=== PATIENT | female | born 1955 | race Caucasian/White ===

== ENCOUNTER → 2020-09-22 | Outpatient (CLI) | payer OTHER ==
[~2020-09-22] MED LIST: ALPRAZOLAM 0.0.25 M1 PO; HYDROCODON-ACE1 EA11 PO; LIPITOR 40 MG T40 M1 PO; LOSARTAN POTAS100 MG PO; NAPROXEN SODIU550 MG PO; PAROXETINE HCL20 MG PO
== END ==
LOC: LAB 11:07
PROVIDERS: ATTEND Specialist
DX: Z01.812 Encounter for preprocedural laboratory examination (principal); Z20.822 Contact with and (suspected) exposure to COVID-19

== ENCOUNTER 2020-09-27 08:31 | Observation (INO) | payer OTHER, MEDICARE ==
[~2020-09-27] VITALS: Ht 162.6 cm; Wt 78.9 kg
--- NOTE | ~2020-09-27 | O ---
[facility] [place] [address] OPERATIVE REPORT Name: ARMANDO SUAREZ Room #: 442-P [facility] Michael MMadhuriRMadhuri#: [id number] Admission: 09/27/20 Attend Phys: Petros Ortega MD Discharge: Date of : 51 Report #: [id number] THIS REPORT FOR: cc: Waylon Ashby MD, James A. MD Quinn,Gelacio Burroughs MD ~ DATE OF SERVICE: 09/27/2020 PREOPERATIVE DIAGNOSES: 1. History of left breast cancer. 2. Absence of left breast. 3. Ptosis of contralateral right breast. 4. Disproportion of reconstructed to natural breast. POSTOPERATIVE DIAGNOSES: 1. History of left breast cancer. 2. Absence of left breast. 3. Ptosis of contralateral right breast. 4. Disproportion of reconstructed to natural breast. PROCEDURES: 1. Left breast tissue combination window installer reconstruction immediate at the time of mastectomy using Snyder Artoura ultra high profile tissue combination window installer, catalog #[id number] filled to 240 mL of saline today. 2. The use of AlloDerm regenerative tissue matrix for the reconstruction of the left breast. 3. Right breast mastopexy without implant. 4. The use of the intraoperative SPY Elite system to evaluate mastectomy, breast flap. SURGEON: Gelacio Foley MD ANESTHESIA: General. ESTIMATED BLOOD LOSS: Minimal. DRAINS: x 2. COMPLICATIONS: None. COUNTS: Needle, sponge and instrument counts correct. INDICATIONS FOR PROCEDURE: The patient is a 65-year-old female who presents following a previous history of left breast lumpectomy with radiation in the years past. She presents now with recurrent tumor, left breast as well as a [facility] [address] [place] [address] OPERATIVE REPORT Name: ARMANDO SUAREZ Room #: 442-P [facility] Michael Lee#: [id number] Admission: 09/27/20 Attend Phys: Petros Ortega MD Discharge: Date of : 51 Report #: [id number] recurrence of ptosis of the right breast with disproportion of the opposite breast. She presents now for treatment of all of these as listed above, understanding the risks and complications including bleeding, infection, scarring, possible skin loss, nipple loss, open wound complications, need for further surgery. DESCRIPTION OF PROCEDURE: The patient was marked in the holding area in the operating room under general. The anterior chest was prepped and draped in the routine fashion. While Dr. Ortega began the mastectomy, which he will dictate separately on the left side. I began with the completion of markings and infiltration of the right breast for the lift. At this time, on the right side, the superior pedicle was deepithelialized. The inferior wedge of breast tissue was removed, maintaining good volume and this tissue was sent for permanent pathology only. Hemostasis achieved using cautery. The breast was then reshaped using interrupted 3-0 Monocryl, 2-0 Monocryl and Insorb skin almita. Final closure with running 3-0 Monocryl around with interrupted 5-0 nylons. A single Zachary drain was brought out through right lateral wound. Occlusive dressings were later applied at the end of the procedure. Upon completion of the left mastectomy, I presented to that side for the reconstruction. The pocket was copiously irrigated with antibiotic solution. Hemostasis was obtained using cautery, which time the subpectoral pocket was dissected in the routine fashion and packed. Checking for hemostasis, which was excellent incorporating cautery as well. The pocket dissected. The AlloDerm regenerative tissue matrix was applied to the leading edge of the pectoralis muscle with a running and locking 2-0 Vicryl suture. At this time, the combination window installer having been prepared was then inserted and secured by all 3 posterior tabs with 2-0 Vicryl sutures. At this time, the AlloDerm was applied to reconstruct the medial, inferior, and lateral folds. This accomplished, the pocket again was irrigated copiously with antibiotic solution throughout the procedure at each different phase of the procedure. At this time, skin closure was affected with minimal dog ear excision on each end. Wound closure was affected with Insorb skin almita and a running 3-0 Monocryl. Prior to completed wound closure, a 19-Panamanian Jv drain was brought out through an inferolateral stab wound and then the On-Q pain pump catheter system was also inserted and later at the end of the procedure, applied with device for Marcaine distribution. It was at this time of the procedure that the vascularity of the mastectomy flap was evaluated. The SPY Elite system was brought into place at which time 5 mg of indocyanine green was placed IV and the intraoperative SPY Elite system placed over the patient to evaluate the vascularity of the breast tissue. The tissue was healthy and immediately perfused in all areas. No areas needing debridement or trimming. The device was also utilized on the right side to assure the vascularity of the skin flaps from the breast lift and the nipple as well and vascularity that was immediate and excellent. At this time, occlusive bulky dressings were applied upon the termination of the procedure. The patient was discharged to the recovery room and then to the floor for overnight observation [address] [address] OPERATIVE REPORT Name: ARMANDO SUAREZ Room #: 442-P [facility] Michael Lee#: [id number] Admission: 09/27/20 Attend Phys: Petros Ortega MD Discharge: Date of : 51 Report #: [id number] and pain control. Orders were written. The patient will be seeing me tomorrow in the office for followup. By: 40 09 Gelacio Foley MD /nt
--- NOTE | ~2020-09-27 | D ---
[place] [address] DISCHARGE SUMMARY Name: ARMANDO SUAREZ Room #: 442-P [facility] MMadhuriRMadhuri#: [id number] Admission: 09/27/20 Attend Phys: Petros Ortega MD Discharge: Date of : 51 Report #: [id number] THIS REPORT FOR: cc: Waylon Ashby MD, James A. MD McCroskey,Petros Medrano MD ~ DATE OF SERVICE: 09/28/2020 This patient underwent left mastectomy and reconstruction together with right breast lift by me and Dr. Foley on 09/27/2020. On the date of dismissal, she is doing well and she wants to go home. She has an appointment to see Dr. Foley later this morning for his postop followup visit. She has instructions to see me in 1-[address] Foley arrange for all of her home going medications including pain pump and oral analgesics. She is doing well today and I instructed her regarding appropriate followup and precautions. Dismissal diet is unrestricted. Dismissal medications include everything she was on before plus Dr. Foley's analgesics as noted above. Dismissal. Activity anesthesia as per Dr. Foley and she understands that. Dr. Foley will remove the drains and the pain pump when appropriate. All questions were answered. By: [id number] MD parul Sharpe
[~2020-09-27 08:31] MED LIST changes: -PAROXETINE HCL20 MG PO; +PAXIL40 MG PO
[2020-09-27 09:30] VITALS: BP 135/80
[2020-09-27 09:44] LABS: HEMATOCRIT 40.4 % (37.0-47.0); HEMOGLOBIN 13.1 gm/dL (12.0-15.0); MCH 29.3 pg (26.0-34.0); MCHC 32.4 g/dL (28.0-37.0); MCV 90.3 fL (80.0-100.0); RBC 4.48 mil/uL (4.20-5.00); RDW 16.2 % (10.5-14.5); WBC 6.3 thou/uL (4.0-11.0)
[2020-09-27 09:50] LABS: CALCIUM 8.9 mg/dL (8.5-10.1); CREATININE 0.9 mg/dL (0.6-1.0); POTASSIUM 4.4 mmol/L (3.5-5.1)
[2020-09-27 09:55] LABS: ALBUMIN 3.6 g/dL (3.4-5.0); TOTAL BILIRUBIN 0.6 mg/dL (0.2-1.0); TOTAL PROTEIN 7.6 g/dL (6.4-8.2)
--- NOTE | 2020-09-27 14:12 | EKG ---
[address] [address] ELECTROCARDIOGRAM REPORT Name: ARMANDO SUAREZ Room #: 150-8 [facility]#: [id number] Admission: 09/27/20 Attend Phys: Petros Ortega MD Discharge: Date of : 51 Report #: [id number] [facility] Test Date: 2020-09-27 Test Time: 09:14:40 Pat Name: ARMANDO SUAREZ Department: Room: Gender: F Chemotherapist: JACEY : 1955 Requested By: Petros Ortega Order Number: [id number] : Pito Alford Measurements Intervals Picher Rate: 75 P: 51 MS: 228 QRS: -8 QRSD: 83 T: 29 QT: 399 QTc: 446 Interpretive Statements Sinus rhythm Prolonged MS interval Probable left atrial enlargement Inferior infarct, old No previous ECG available for comparison Electronically Signed On 09-27-2020 14:12:32 APPLICATION CONSULTANT by Pito Alford [email or web address] <ELECTRONICALLY SIGNED> By: Pito Alford MD, [facility] 09/27/20 1412 3 Pito Alford MD, FACC /EPI
--- NOTE | 2020-09-27 18:45 | NUR ---
PT RECEIVED FROM [facility] AT 1700 ALERT AND IN NO ACUTE DISTRESS. CHEST DRESSING DRY AND INTACT. ON-Q PUMP ACTIVE. ELYSSA DRAIN W/ SANGUINOUS DRAINAGE. GIVE NORCO FOR PAIN W/ GOOD RELIEF. TAKING CLEAR LIQUIDS W/O NAUSEA. DAUGHTER AT BEDSIDE. PLAN FOR PT TO DC TOMORROW AND IS GOING STRAIGHT TO DR. SHAH'S OFFICE FOR TEACHING ON WOUND CARE W/ DTR.
[2020-09-27 20:30] VITALS: BP 150/82
--- NOTE | 2020-09-28 04:28 | NUR ---
VSS-AFEBRILE. 2LNC IN PLACE OVERNIGHT WHILE BEING MEDICATED FOR PAIN. FIRST POST OPERATIVE VOID AT 0300, APPROXIMATELY 150ML OF CLEAR, LIGHT YELLOW URINE. PATIENT FELT SHE WAS RETAINING URINE POST VOID, BLADDER SCAN REVEALED >580ML. STRAIGHT CATHETERIZATION PERFORMED WITHOUT DIFFICULTY, 550ML LIGHT GREEN URINE DRAINED. PAIN WELL CONTROLLED THROUGH SHIFT WITH PO HYDROCODONE AND VALIUM. PROGRESSED TO FULL LIQUID DIET WITH NO REPORTED N/V. LEFT CHEST ELYSSA DRAIN EMPTIED APPROX 100ML SANGUINEOUS FLUID. OOB WITH SBA, STEADY ON FEET, AND CALLS APPROPRIATELY FOR ANY NEEDED ASSISTANCE. CHEST WRAP DRESSING DRY AND INTACT. BILATERAL MAURY HOSE AND SCD'S IN PLACE THROUGH SHIFT, ABLE TO CHANGE POSITIONS INDEPENDENTLY. FALL PRECAUTIONS IN PLACE.
[2020-09-28 08:30] VITALS: BP 135/84
--- NOTE | 2020-09-28 09:19 | O ---
[facility] [place] [address] OPERATIVE REPORT Name: ARMANDO SUAREZ Room #: 442-P [facility] M.R.#: [id number] Admission: 09/27/20 Attend Phys: Petros Ortega MD Discharge: Date of : 51 Report #: [id number] THIS REPORT FOR: cc: Waylon Ashby MD, James A. MD McCroskey,Petros Medrano MD ~ DATE OF SERVICE: 09/27/2020 PREOPERATIVE DIAGNOSIS: Carcinoma of left breast, previous left breast lumpectomy and axillary node dissection and radiation elsewhere 1999. POSTOPERATIVE DIAGNOSIS: Carcinoma of left breast, previous left breast lumpectomy and axillary node dissection and radiation elsewhere 1999. OPERATION: Left skin-sparing mastectomy with lymphatic mapping. SURGEON: Petros Ortega MD. COSURGEON: Dr. Gelacio Foley. SCRIP CLERK: Medical student, MS Ramon3. SECOND CADD DRAFTER: Medical student, MS Reynaldo3. SECOND CADD DRAFTER: Medical student, MS Killian3. ANESTHESIA: General. DESCRIPTION OF PROCEDURE: The patient was taken to nuclear medicine and the radiologist injected technetium sulfur colloid into the left breast. No hot spots were identified apparently. The patient was brought to the operating room for a general anesthetic after Dr. Foley and I had marked the patient for the appropriate anatomic landmarks for the mastectomy and opposite breast surgery and reconstruction. Lymphatic mapping was performed using the gamma probe and we could not find any hot spots in the left axilla. This was not too surprising, since the patient had undergone a previous lumpectomy and lymph node dissection in the year [address] Rothman and then he had post-lumpectomy radiation. I told the patient and her family that we might not be able to find any sentinel nodes. 5 mL of Lymphazurin blue dye were injected into the breast using standard technique and protocol using sterile technique with alcohol prep. Next, the abdomen, the chest, both breasts and both axillary regions were widely prepped with ChloraPrep solution. Sterile drapes were applied. Dr. Foley started his right breast lift and I started the left skin-sparing mastectomy as a team. Dr. Foley and I discussed incision options and we both felt that a transverse elliptical incision to include the reconstructed left [address] [address] OPERATIVE REPORT Name: ARMANDO SUAREZ Room #: 442-P [facility] Michael Lee#: [id number] Admission: 09/27/20 Attend Phys: Petros Ortega MD Discharge: Date of : 51 Report #: [id number] nipple and the old lumpectomy scar just inferior to the reconstructed nipple would be a good choice for this patient. The nipple had been removed by Dr. Rothman at the time of the lumpectomy previously. A transverse elliptical incision was thus made on the left side. Dissection was carried down through the skin and subcutaneous tissues. The skin flaps were developed using electrocautery and a left skin-sparing mastectomy was performed, removing the entire breast together with the pectoralis fascia and the tail of Flores. The axilla was entered and we could not find any blue nodes, nor could we find any radioactive nodes. Palpation revealed no suspicious nodes. The mastectomy included the tail of Flores, which was marked with a suture for orientation purposes. The mastectomy was submitted to the pathologist. The skin flaps appeared excellent. The sponge, instrument, and needle counts were reported as correct. The incision was irrigated with Dr. Foley's antibiotic solution. Hemostasis was again checked and was found to be excellent. At this point, I scrubbed out and Dr. Foley continued with his left breast reconstruction and right breast lift. That will be dictated by him. Estimated blood loss for my portion of the operation was 20 mL. <ELECTRONICALLY SIGNED> By: Petros Ortega MD 09/28/20 0919 1419 1453 Petros Ortega MD /nt
[2020-09-28] MEDS ORDERED: LIPITOR40 MG PO (09:28)
[2020-09-28] MEDS ORDERED: COZAAR100 MG PO (09:29)
[2020-09-28] MEDS ORDERED: PAXIL 20 MG TAB20 M1 PO (09:31)
[2020-09-28] MEDS ORDERED: ONDANSETRON4 MG/2 M1 IV PUSH (09:33)
--- NOTE | 2020-09-28 10:00 | NUR ---
ASSESSMENT: CM REVIEWED CHART AND MET WITH PATIENT. PT IS ALERT AND ORIENTED X4. PT IS S/P TOTAL MASTECTOMY. PT REPORTS LIVING IN A HOUSE ALONE. PT REPORTS 2 STEPS TO ENTER THE HOME WITH NO HANDRAILS. PT REPORTS ONCE INSIDE ABOUT 7 STEPS WITH HANDRAILS TO HER BEDROOM. PT REPORTS SHE IS VERY INDEPENDENT AND JUST RETIRED RECENTLY. PT REPORTS NO DME AT HOME OR THE NEED FOR IT. PT REPORTS NO HX OF HH OR SNF. PT REPORTS SHE HAS FRIENDS WHO ARE SUPPORTIVE. CM DISCUSSED ROLE. PT DOES NOT ANTICIPATE HAVING ANY NEEDS FROM CM AT DISCHARGE.
[2020-09-28 10:06] VITALS: BP 150/82
--- NOTE | 2020-09-28 10:54 | NUR ---
ASSUMED PT CARE THIS AM. PT VSS, A&OX4. PT PLEASANT, MAKES NEEDS KNOWN. REPORTS PAIN IN THE LEFT BREAST, RESPONDED WELL TO PAIN MEDS GIVEN PER EMAR. PT AMBULATORY TO THE BATHROOM WITH GAIT BELT AND STANDBY ASSIST. REPORTING NO NAUSEA. PT REMAINS CONTINENT. ON ROOM AIR. TOOK MEDS WITHOUT COMPLAINT TODAY. FALL PRECAUTIONS ARE IN PLACE.
--- NOTE | 2020-09-28 11:15 | NUR ---
Orders received, chart review. Education provide for pt on HEP to start 2 weeks after surgery. If the drains have not been removed by then, pt is not to start exercises until the drains are removed. Reviewed UE lymphedema precautios with pt. discussed the need for a compression sleeve. Pt instructed in how to obtain sleeve. Provided pt with handout and therapist contact information if she has any question in the future. Started eval at 1015 and finished at 1110. Thank you for the referral.
== END 2020-09-28 14:40 | disposition home or self-care (01) ==
LOC: OR → TBA 08:31 → OR 09:03 → 4S 17:36 → OR 17:37 → 4S 09-28 14:40
PROVIDERS: ADMIT Specialist; ATTEND Specialist
DX: C50.912 Malignant neoplasm of unspecified site of left female breast (principal); N64.81 Ptosis of breast
CPT/HCPCS: 50010; 50101; 50386; 50403; 50455; 52190; 56524; 56525; 56526; 56527; 57108; 57157; 62110; 62900; 65130; 70005